=== PATIENT | female | born 1970 | race Caucasian/White ===

== ENCOUNTER → 2017-09-18 | Outpatient (CLI) | payer OTHER ==
[~2017-09-18] MED LIST: ASPI-650 PO; ESCI10TA10 PO; METF10002 PO; METO25TA35 PO; OMNIPAQUE 350 MG/ML, 150 ML BOTTLE ONE
== END | disposition home or self-care (01) ==
LOC: CFH 09:14 → EDSTATUS 09:30
PROVIDERS: ATTEND Internal Medicine Cardiovascular Disease
DX: I51.7 Cardiomegaly (principal); I10 Essential (primary) hypertension; E11.9 Type 2 diabetes mellitus without complications; E78.5 Hyperlipidemia, unspecified; I34.0 Nonrheumatic mitral (valve) insufficiency; Z87.891 Personal history of nicotine dependence; Z85.3 Personal history of malignant neoplasm of breast
CPT/HCPCS: 36415; 71275; 82565; 93306; Q9967

== ENCOUNTER → 2018-05-15 | Outpatient (CLI) | payer OTHER ==
[~2018-05-15] MED LIST changes: +ALPR1TAB2 PO; +ATOR10TA PO; +CHOL2000 PO; +CITA20TA6 PO; +LISI5TAB7 PO; +METF10003 PO; -OMNIPAQUE 350 MG/ML, 150 ML BOTTLE ONE; +[UNRECOGNIZED DRUG - REMARK] NAS
[2018-05-15 14:00] LABS: ALANINE AMINOTRANSFERASE 36 U/L (12-78); ALBUMIN 3.8 g/dL (3.4-5.0); ANION GAP 7 mmol/L (5-15); CALCIUM 9.1 mg/dL (8.5-10.1); CHLORIDE 98 mmol/L (98-107); CREATININE 0.85 mg/dL (0.55-1.02)
[2018-05-15 14:03] LABS: ALKALINE PHOSPHATASE 191 U/L (45-117); BILIRUBIN,TOTAL 0.5 mg/dL (0.2-1.0); TOTAL PROTEIN 8.7 g/dL (6.4-8.2)
== END | disposition home or self-care (01) ==
LOC: STAR 12:29
PROVIDERS: ATTEND Otolaryngology
DX: Z01.818 Encounter for other preprocedural examination (principal); J32.4 Chronic pansinusitis; J30.1 Allergic rhinitis due to pollen; I45.10 Unspecified right bundle-branch block
CPT/HCPCS: 36415; 80053; 93005

== ENCOUNTER → 2018-05-20 | Outpatient (CLI) | payer OTHER ==
[~2018-05-20] VITALS: Ht 175.3 cm; Wt 105.0 kg
[~2018-05-20] MED LIST changes: +ACETAMINOPHEN 500 MG TABLET PO ONE; +BACITRACIN OINT 500U/GM, 15 GM ONE; +DIAZEPAM 5 MG TABLET PO ONE; +EPINEPHRINE 1 MG/ML, 1ML ONE; +EPINEPHRINE TOPICAL SOLN 1 MG/ML, 30ML ONE; +FENTANYL PF 250 MCG/5ML ONE; +FLUORESCEIN SODIUM 500 MG/5 ML ONE; +GABAPENTIN 300 MG CAPSULE PO ONE; +LACTATED RINGERS 1,000 ML IV SCH; +LIDOCAINE-MPF 1%, 2ML INFIL ONE; +LIDOCAINE/PF 1%, 30ML ONE; +MIDAZOLAM 1 MG/ML, 2ML ONE; +ONDANSETRON ODT 8 MG PO ONE; +OXYMETAZOLINE NASAL SPRAY 0.05%, 15ML ONE
[2018-05-20 06:38] VITALS: BP 140/84
[2018-05-20 07:01] LABS: HCG UR SG > 1.045 (1.003-1.030)
== END | disposition home or self-care (01) ==
LOC: OUT 05:43 → CLISVCS 05:46 → EDSTATUS 07:30 → OUT 07:50
PROVIDERS: ATTEND Otolaryngology
DX: J34.2 Deviated nasal septum (principal); J30.1 Allergic rhinitis due to pollen; Z53.9 Procedure and treatment not carried out, unspecified reason; Z88.8 Allergy status to other drugs, medicaments and biological substances; Z91.040 Latex allergy status
CPT/HCPCS: 81025; 82947; 82962; J0171; J2250; J3010; J3490

== ENCOUNTER 2018-06-17 06:34 | Day surgery (SDC) | payer OTHER ==
[~2018-06-17] VITALS: Ht 175.3 cm; Wt 106.0 kg
[~2018-06-17 06:34] MED LIST changes: -ACETAMINOPHEN 500 MG TABLET PO ONE; -BACITRACIN OINT 500U/GM, 15 GM ONE; -DIAZEPAM 5 MG TABLET PO ONE; -EPINEPHRINE 1 MG/ML, 1ML ONE; -EPINEPHRINE TOPICAL SOLN 1 MG/ML, 30ML ONE; -FENTANYL PF 250 MCG/5ML ONE; -FLUORESCEIN SODIUM 500 MG/5 ML ONE; -GABAPENTIN 300 MG CAPSULE PO ONE; -LACTATED RINGERS 1,000 ML IV SCH; -LIDOCAINE-MPF 1%, 2ML INFIL ONE; -LIDOCAINE/PF 1%, 30ML ONE; -MIDAZOLAM 1 MG/ML, 2ML ONE; -ONDANSETRON ODT 8 MG PO ONE; -OXYMETAZOLINE NASAL SPRAY 0.05%, 15ML ONE
[2018-06-17] MEDS ORDERED: LACTATED RINGERS 1,000 ML IV SCH (07:19)
[2018-06-17] MEDS ORDERED: EPINEPHRINE 1 MG/ML, 1ML ONE (07:24)
[2018-06-17] MEDS ORDERED: LIDOCAINE-MPF 1%, 5ML ONE (07:24)
[2018-06-17] MEDS ORDERED: EPINEPHRINE TOPICAL SOLN 1 MG/ML, 30ML ONE (07:24)
[2018-06-17] MEDS ORDERED: ACETAMINOPHEN 500 MG TABLET PO ONE (07:30)
[2018-06-17] MEDS ORDERED: GABAPENTIN 300 MG CAPSULE PO ONE (07:30)
[2018-06-17] MEDS ORDERED: SCOPOLAMINE PATCH, 1.5MG PATCH.TD72 TD ONE (07:30)
[2018-06-17 07:42] VITALS: BP 153/93
[2018-06-17] MEDS ORDERED: MIDAZOLAM 1 MG/ML, 2ML ONE (07:59)
[2018-06-17] MEDS ORDERED: FENTANYL PF 250 MCG/5ML ONE (07:59)
[2018-06-17] MEDS ORDERED: SUCCINYLCHOLINE 20 MG/ML, 10ML ONE (08:43)
[2018-06-17] MEDS ORDERED: PHENYLEPHRINE 10 MG/ML ONE (08:43)
[2018-06-17] MEDS ORDERED: FLUORESCEIN SODIUM 500 MG/5 ML IV ONE (09:30)
[2018-06-17] MEDS ORDERED: BACITRACIN OINT 500U/GM, 15 GM TP ONE (09:31)
[2018-06-17] MEDS ORDERED: EPINEPHRINE 1 MG/ML, 1ML INFIL ONE (09:31)
[2018-06-17] MEDS ORDERED: LIDOCAINE 1%, 20ML INFIL ONE (09:31)
[2018-06-17] MEDS ORDERED: MIDAZOLAM 1 MG/ML, 2ML IV PRN (10:00)
[2018-06-17] MEDS ORDERED: ALBUTEROL/IPRATROPIUM 2.5MG/0.5MG, 3 ML NPPB PRN (10:00)
[2018-06-17] MEDS ORDERED: METOCLOPRAMIDE 5 MG/ML, 2ML IV PRN (10:00)
[2018-06-17] MEDS ORDERED: PROMETHAZINE 25 MG/ML, 1ML IV PRN (10:00)
[2018-06-17] MEDS ORDERED: EPHEDRINE 50 MG/ML, 1ML IM PRN (10:00)
[2018-06-17] MEDS ORDERED: OXYcodone 5 MG/5 ML ORAL.SOL UDC PO PRN (10:00)
[2018-06-17] MEDS ORDERED: ONDANSETRON 2MG/ML, 2ML IV PRN (10:00)
[2018-06-17] MEDS ORDERED: LABETALOL 5MG/ML, 20ML IV PRN (10:00)
[2018-06-17] MEDS ORDERED: MEPERIDINE/PF 25MG/0.5ML IVPush PRN (10:00)
[2018-06-17] MEDS ORDERED: HYDROmorphone 1 MG/ML, 1ML IV PRN (10:00)
[2018-06-17] MEDS ORDERED: ONDANSETRON 2MG/ML, 2ML ONE (11:06)
[2018-06-17] MEDS ORDERED: CEFAZOLIN 1,000 MG ONE (11:06)
[2018-06-17] MEDS ORDERED: PROPOFOL 10 MG/ML, 20ML ONE (11:06)
[2018-06-17] MEDS ORDERED: DEXAMETHASONE 4 MG/ML, 1ML ONE (11:06)
[2018-06-17] MEDS ORDERED: FENTANYL PF 100 MCG/2ML ONE (11:30)
[2018-06-17] MEDS ORDERED: OXYcodone 5 MG/5 ML ORAL.SOL UDC ONE (11:30)
[2018-06-17] MEDS: FENTANYL PF 100 MCG/2ML IV PRN ×3 (11:32→11:55)
[2018-06-17] MEDS ORDERED: HYDROmorphone 2 MG/ML, 1ML ONE (11:58)
== END 2018-06-17 14:55 ==
LOC: OUT 06:34
PROVIDERS: ATTEND Otolaryngology
DX: J32.4 Chronic pansinusitis (principal); J33.8 Other polyp of sinus; J30.89 Other allergic rhinitis; E78.00 Pure hypercholesterolemia, unspecified; F41.9 Anxiety disorder, unspecified; E11.9 Type 2 diabetes mellitus without complications; I10 Essential (primary) hypertension; I25.10 Atherosclerotic heart disease of native coronary artery without angina pectoris; Z85.3 Personal history of malignant neoplasm of breast; Z90.12 Acquired absence of left breast and nipple; Z98.890 Other specified postprocedural states; Z91.040 Latex allergy status; Z88.8 Allergy status to other drugs, medicaments and biological substances
CPT/HCPCS: 30140; 31253; 31256; 31267; 31287; 61782; 82962; 87070; 87075; 87102; 87205; 88304; J0171; J0330; J0690; J1100; J1170; J2250; J2370; J2405; J2704; J3010; J3490; J7120; 87077

== ENCOUNTER → 2019-03-03 | Outpatient (CLI) | payer OTHER ==
[~2019-03-03] MED LIST changes: -METF10003 PO; +METF10007 PO
== END | disposition home or self-care (01) ==
LOC: RAD 09:51
PROVIDERS: ATTEND Neurological Surgery
DX: Z01.818 Encounter for other preprocedural examination (principal); M48.00 Spinal stenosis, site unspecified; M54.16 Radiculopathy, lumbar region; Z91.040 Latex allergy status; Z91.018 Allergy to other foods; Z88.8 Allergy status to other drugs, medicaments and biological substances
CPT/HCPCS: 71046; 93005